=== PATIENT | female | born 1980 | race Hispanic/Latino ===

== ENCOUNTER 2017-06-20 23:21 | Emergency (ER) | payer SELFPAY ==
[2017-06-20] MEDS ORDERED: METHYLPREDNISOLONE SOD SUCC 125MG/2ML VIAL ONE (23:38)
[2017-06-20] MEDS ORDERED: FAMOTIDINE 20MG TAB 20 MG TAB ONE (23:38)
== END 2017-06-21 00:15 | disposition home or self-care (01) ==
LOC: EDH 23:21
DX: L50.9 Urticaria, unspecified (principal); R22.0 Localized swelling, mass and lump, head; R06.02 Shortness of breath
CPT/HCPCS: 96372; 99283; J2930